=== PATIENT | male | born 1950 | race Caucasian/White ===

== ENCOUNTER 2022-02-07 09:43 | Emergency (ER) | payer MEDICARE, OTHER, SELFPAY ==
[2022-02-07 09:51] VITALS: BP 147/84; PULSE 65; RESP 16; TEMP 36.5; O2SAT 98; BMI 32.4
--- NOTE | 2022-02-07 10:40 | ED.GENADULT ---
HPI - General Adult General Time Seen by Provider: 10:40 Date Seen: 02/07/22 Chief complaint: Fall/Minor Trauma Stated complaint: Fell,head laceration Time Seen by Provider: 02/07/22 10:07 Source: patient Mode of arrival: ambulatory Limitations: no limitations History of Present Illness HPI narrative: Patient iA 70 year white male who 2 days ago was bent over picking up sticks felt little dizzy and then fell forward on his forehead he called his clinic today and asked him to come to the ED. he has had a history of TIA but he had no symptoms of that, no headache no neck pain no back pain. The patient was doing well. Patient was on aspirin daily. He reports that several years ago he had a transient ischemic attack. He has had swelling of his upper eyelids, no neck pain, no headache, no neurologic complaints, he has been on light activity since this happened 2 days ago. He presents with his . They live in [place]. He thinks his tetanus is up-to-date we will confirm this. Related Data Home Medications Medication Instructions Recorded Confirmed amlodipine 5 mg tablet mg 02/07/22 aspirin 325 mg capsule 325 mg PO DAILY 02/07/22 02/07/22 lisinopril 40 mg tablet mg 02/07/22 rosuvastatin 40 mg tablet mg 02/07/22 Allergies Allergy/AdvReac Type Severity Reaction Status Date / Time No Known Drug Allergies Allergy Verified 02/07/22 09:56 Review of Systems Status of ROS: Reports: 6 or more systems reviewed and unremarkable except as noted in History and below Exam Narrative: Exam Narrative: Objective: Patient has abrasion over his forehead and over the nasal bridge, no malalignment of his nose, no nasal bleeding. No tenderness to palpation of his nose her forehead no palpable step-off. HEENT otherwise unremarkable no facial asymmetry pupils aggression light extra movements intact neck is supple nontender. The patient does have some puffy upper eye lids consistent with some mild bleeding in his forehead. No active bleeding this is well scarred over and appears non cellulitic. Neurologic is grossly nonfocal pulse is regular patient has had no chest pain breathing problem COVID symptoms or other concerns. Const: Vital Signs, click to edit/add: Vital Signs - 24 hr 02/07/22 09:51 Temperature 97.7 F Pulse Rate [Right Pulse Oximeter] 65 Respiratory Rate 16 Blood Pressure [Ri ght Upper Arm] 147/84 H Pulse Oximetry 98 Oxygen Delivery Me thod Room Air Course Vital Signs Vital signs: Initial Vital Signs Temperature 97.7 F 02/07/22 09:51 Temperature Source Temporal Artery Scan 02/07/22 09:51 Pulse Rate 65 02/07/22 09:51 Pulse Rhythm 02/07/22 09:51 Respiratory Rate 16 02/07/22 09:51 Blood Pressure 147/84 H 02/07/22 09:51 Blood Pressure Mean 105 02/07/22 09:51 Blood Pressure Position Sitting 02/07/22 09:51 Pulse Oximetry 98 02/07/22 09:51 Oxygen Delivery Method 02/07/22 09:51 Vital Signs Temperature 97.7 F 02/07/22 09:51 Pulse Rate 65 02/07/22 09:51 Respiratory Rate 16 02/07/22 09:51 Blood Pressure 147/84 H 02/07/22 09:51 Pulse Oximetry 98 02/07/22 09:51 Oxygen Delivery Method 02/07/22 09:51 Temperature 97.7 F 02/07/22 09:51 Pulse Rate 65 02/07/22 09:51 Respiratory Rate 16 02/07/22 09:51 Blood Pressure 147/84 H 02/07/22 09:51 Pulse Oximetry 98 02/07/22 09:51 Oxygen Delivery Method 02/07/22 09:51 Medical Decision Making MDM Narrative Medical decision making narrative: Patient fell 2 days ago scratched his forehead and nose, no evidence of tenderness over the nose consistent with a nasal fracture. No significant headache or nausea or vomiting that would indicate head injury of significance. I think at this point the concern please bacitracin the topical areas of the abrasions and would maybe hold his aspirin for 3 days then he can restart, continue his other medications at home light activity avoid secondary injury, follow up with primary care in the next few days if concerns or questions, can always return to the ED as needed. Discharge Plan Discharge Clinical Impression: Abrasion of forehead Patient Disposition: Home w/ Parent or Adult Condition: Stable Additional Instructions: Light activity, bacitracin topically to the abrasions, hold aspirin for 3 days, recheck with primary care as needed, return to ED as needed. Activity Level: Light activity Discharge Diet: Regular Prescriptions: No Action aspirin 325 mg capsule 325 mg PO DAILY amlodipine 5 mg tablet lisinopril 40 mg tablet rosuvastatin 40 mg tablet Follow Up/Referrals: Provider,Not a Local [Primary Care Provider] - Stand Alone Forms: [employer] Info Instructions
== END 2022-02-07 10:52 | disposition home or self-care (01) ==
PROVIDERS: Emergency Provider Family Medicine
DX: S00.91XA Abrasion of unspecified part of head, initial encounter (principal); W19.XXXA Unspecified fall, initial encounter
CPT/HCPCS: 99283; 99284